=== PATIENT | male | born 1940 | race Caucasian/White ===

== ENCOUNTER → 2016-10-21 | Outpatient (CLI) | payer OTHER, MEDICARE ==
[~2016-10-21] MED LIST: AMOX TR-K CLV1 EAC4 PO; AMOXICILLIN500 M1 PO; AUGMENTIN875 MG PO; COLACE100 MG PO; CYANOCOBALAM1000 MCG PO; FISH OIL 1,0001 EAC7 PO; FLORASTOR250 MG PO; LATANOPROST2.5 ML BOTH EYES; LISINOPRIL20 MG PO; LISINOPRIL40 MG PO; LO-DOSE ASPIRIN81 M2 PO; NORCO 5/3251 TABLET PO; STOOL SOFTENER100 MG PO; TOPROL XL25 MG PO; VICODIN 5-3001 EACH PO; VITAMIN B122500 MCG PO; VITAMIN D31000 UNI2 PO; XARELTO15 MG PO
== END | disposition home or self-care (01) ==
LOC: NUC 13:16 → RAD 13:16 → NUC 13:30
DX: I26.99 Other pulmonary embolism without acute cor pulmonale (principal)
CPT/HCPCS: 71020; 78582; A9540; A9567

== ENCOUNTER → 2017-04-22 | Outpatient (CLI) | payer OTHER, MEDICARE | END | disposition home or self-care (01) | LOC: RAD 08:44 | DX: Z45.89 Encounter for adjustment and management of other implanted devices (principal); Z86.718 Personal history of other venous thrombosis and embolism; Z86.711 Personal history of pulmonary embolism; Z95.828 Presence of other vascular implants and grafts | CPT/HCPCS: 71020; 78582; 93970; 93979; A9540; A9567 ==

== ENCOUNTER → 2017-04-23 | Outpatient (CLI) | payer OTHER, MEDICARE | END | disposition home or self-care (01) | LOC: EKG 12:41 | DX: I05.1 Rheumatic mitral insufficiency (principal); I07.1 Rheumatic tricuspid insufficiency; I70.0 Atherosclerosis of aorta; R94.31 Abnormal electrocardiogram [ECG] [EKG] | CPT/HCPCS: 93306 ==